=== PATIENT | female | born 1955 | race Caucasian/White ===

== ENCOUNTER 2017-05-05 11:30 | Inpatient (IN) | payer OTHER ==
[~2017-05-05] VITALS: Ht 152.4 cm; Wt 68.0 kg
[~2017-05-05 11:30] MED LIST: GLU500 PO; LEXAPRO10 MG PO; LORAZEPAM1 MG PO; MAC100 PO; MOT600 PO; NEU300 PO; NORCO1 TA2 PO; PROTONIX20 MG PO
[2017-05-05 12:27] LABS: microscopic required? NO
[2017-05-05 12:48] LABS: BASOPHIL % 0.2 % (0-2); PLATELET COUNT 326 x10^3mcL (130-400); RED CELL DISTRIBUTION WIDTH 13.2 % (11.5-14.5)
[2017-05-05 12:48] LABS: UA SPECIFIC GRAVITY 1.015 (1.005-1.035); urine erythrocyte NEGATIVE (NEGATIVE)
[2017-05-05 12:50] LABS: CALCIUM 9.2 mg/dL (8.5-10.1); CHLORIDE SERUM 105 mmol/L (98-107); CREATININE SERUM 0.6 mg/dL (0.6-1.0); GFR1 > 60 mL/min; GLUCOSE SERUM 131 mg/dL (74-106); POTASSIUM SERUM 3.5 mmol/L (3.5-5.1); SODIUM SERUM 141 mmol/L (136-145)
[2017-05-05 12:57] LABS: AMPHETAMINE QUAL UR NONE DETECTED (NEG <=1000)
[2017-05-05 13:00] LABS: ALBUMIN 3.6 g/dL (3.4-5.0); ALKALINE PHOSPHATASE 115 U/L (46-116); ALT/SGPT 24 U/L (14-59); AST/SGOT 22 U/L (15-37); BILIRUBIN TOTAL 0.57 mg/dL (0.20-1.00); TOTAL PROTEIN, SERUM 7.8 g/dL (6.4-8.2)
[2017-05-05 16:06] LABS: MAGNESIUM 2.3 mg/dL (1.8-2.4); PHOSPHOROUS 3.8 mg/dL (2.5-4.9)
[2017-05-05 16:08] LABS: T3 TOTAL 1.09 ng/mL
[2017-05-05 16:13] LABS: CHOLESTEROL/HDL RATIO 2.2; FREE T4 1.31 ng/dL (0.76-1.46); FREE THYROXINE INDEX 3.8 ug/dL (1.4-4.5); T4(THYROXINE) 10.6 ug/dL (4.7-13.3)
[2017-05-05 16:40] VITALS: BP 138/77
[2017-05-05] MEDS ORDERED: METFORMIN500 M1 PO (17:02)
[2017-05-05] MEDS ORDERED: ZOLOFT50 MG PO (17:02)
[2017-05-05] MEDS ORDERED: LIPI20 PO (17:02)
[2017-05-05] MEDS ORDERED: GABAPENTIN100 M2 PO (18:25)
[2017-05-05 21:33] VITALS: BP 105/53
[2017-05-06 05:00] VITALS: BP 115/54
[2017-05-06 06:24] LABS: BASOPHIL % 0.2 % (0-2); PLATELET COUNT 299 x10^3mcL (130-400); RED CELL DISTRIBUTION WIDTH 13.3 % (11.5-14.5)
[2017-05-06 06:28] LABS: CALCIUM 9.1 mg/dL (8.5-10.1); CARBON DIOXIDE 28.3 mmol/L (21-32); CHLORIDE SERUM 108 mmol/L (98-107); CREATININE SERUM 0.6 mg/dL (0.6-1.0); GFR1 > 60 mL/min; GLUCOSE SERUM 124 mg/dL (74-106); POTASSIUM SERUM 3.8 mmol/L (3.5-5.1); SODIUM SERUM 146 mmol/L (136-145)
[2017-05-06 10:00] VITALS: BP 113/56
[2017-05-06 22:06] VITALS: BP 106/47
[2017-05-07 06:10] VITALS: BP 111/45
[2017-05-07 08:40] VITALS: BP 130/60
[2017-05-07 13:34] VITALS: BP 130/60
[2017-05-07 15:58] VITALS: Ht 152.4 cm; Wt 68.0 kg
[2017-05-07 16:03] VITALS: BP 130/60
[2017-05-07] MEDS ORDERED: ZOLOFT50 MG PO (17:16)
[2017-05-07] MEDS ORDERED: GABAPENTIN100 M2 PO (17:16)
[2017-05-07] MEDS ORDERED: NORCO1 TA2 PO (17:16)
[2017-05-07] MEDS ORDERED: MOT600 PO (17:16)
[2017-05-07] MEDS ORDERED: METFORMIN500 M1 PO (17:16)
[2017-05-07] MEDS ORDERED: LIPI20 PO ×2 (17:16→17:29)
[2017-05-07] MEDS ORDERED: NEU100 PO (17:29)
[2017-05-07] MEDS ORDERED: SERTRALINE50 M1 PO (17:29)
[2017-05-07] MEDS ORDERED: GLU500 PO (17:29)
== END 2017-05-07 17:35 | disposition home or self-care (01) | DRG 750 ==
LOC: ED 11:30 → DU 14:31
PROVIDERS: Emergency Medicine; ADMIT Family Medicine
DX: F25.1 Schizoaffective disorder, depressive type (principal); G93.40 Encephalopathy, unspecified; D68.69 Other thrombophilia; R45.851 Suicidal ideations; E11.65 Type 2 diabetes mellitus with hyperglycemia; Z91.14 Patient's other noncompliance with medication regimen; E66.9 Obesity, unspecified; Z68.29 Body mass index [BMI] 29.0-29.9, adult; F41.9 Anxiety disorder, unspecified; F31.9 Bipolar disorder, unspecified
CPT/HCPCS: 83880; 84439; G0480; Q0092